=== PATIENT | female | born 1930 | race Caucasian/White ===

== ENCOUNTER → 2018-08-27 | Outpatient (CLI) | payer MEDICARE ==
[~2018-08-27] MED LIST: AMLODIPINE BESYLATE PO; ASPIRIN81 M2 PO; ATIVAN0.5 MG PO; ELIDEL; LYRICA 75MG75 MG; MAGNESIUM; METOPROLOL SUCC25 MG PO; METOPROLOL TART25 MG PO; OMEGA 3; TYLENOL80 MG/0.8 PO; VITAMIN B12; Z.0.ALEVE220 MG PO; Z.0.CALTRATE 600 W1 PO; Z.0.HYDROCHLOROTHIA2 PO; Z.0.LOVASTATIN40 MG PO; Z.0.LOVENOX30 MG/0.3 SQ; Z.0.NORCO 10-325 T1 PO; Z.0.PRILOSEC OTC20 M PO; Z.0.VOLTAREN75 MG PO; [UNRECOGNIZED DRUG - OTHER]; [UNRECOGNIZED DRUG - OTHER]
--- NOTE | 2018-08-27 09:17 | Diagnostic Imaging Report ---
PROCEDURE: Frontal and lateral views of the chest. COMPARISON: Chest radiograph 11/08/2011. INDICATIONS: BREAST CANCER FINDINGS: Lines/tubes: None. Lungs: The lungs are well inflated. No evidence of pneumonia or pulmonary edema. Pleura: There is no pleural effusion or pneumothorax. Heart and mediastinum: The cardiomediastinal silhouette is unremarkable. Atherosclerotic aortic calcifications. Eventration of the right hemidiaphragm. Bones: No acute bony abnormality. There is a partially seen deformity of the left humeral diaphysis, which appears more sclerotic and enlarged compared to prior radiograph on 11/08/2011. IMPRESSION: No acute intrathoracic abnormality. Partially seen increased sclerosis and deformity of the left humeral diaphysis compared to radiograph on 11/08/11 which demonstrated a lucent lesion at this location. This is indeterminate and could represent metastatic lesion and dedicated radiographs of the left humerus are suggested. Dictated by: PRANAV MONTELONGO M.D. on 08/27/2018 at 9:26 Electronically approved by: PRANAV MONTELONGO M.D. on 08/27/2018 at 9:26
--- NOTE | 2018-09-07 08:37 | Diagnostic Imaging Report ---
#[id number] - MGSCRRT #UNILATERAL RIGHT DIGITAL SCREENING MAMMOGRAM WITH CAD: 08/27/2018 CLINICAL: Routine screening. Comparison is made to exam dated: 08/26/2017 mammogram - [facility]. Current study contains 4 films. There are scattered fibroglandular elements in the right breast. Current study was also evaluated with a Computer Aided Detection (CAD) system. There are benign vascular calcifications and calcifications in the right breast. No significant masses, calcifications, or other findings are seen in the breast. There has been no significant interval change. IMPRESSION: BENIGN There is no mammographic evidence of malignancy. A 1 year screening mammogram is recommended. The patient will be notified by letter of the results. Naresh elkins/jose:09/04/2018 08:46:42 Log Roper: Dominique DOZIER)(Zane), [facility] letter sent: Compared to Prior B9 Mammogram BI-RADS: 2 Benign
== END ==
LOC: MAMMO 08:25
PROVIDERS: ATTEND Surgery
DX: Z12.31 Encounter for screening mammogram for malignant neoplasm of breast (principal); Z90.12 Acquired absence of left breast and nipple
CPT/HCPCS: 71046

== ENCOUNTER → 2019-09-09 | Outpatient (CLI) | payer MEDICARE ==
[2019-09-09 10:32] LABS: BASOPHILS % 0.4 % (0.0-1.0); EOSINOPHILS # (AUTO) 0.1 (0.0-0.4); EOSINOPHILS % 1.9 % (0.0-6.0); HEMATOCRIT 36.7 % (34.2-44.1); HEMOGLOBIN 11.8 g/dL (12.0-16.0); LYMPHOCYTES % 19.1 % (18.0-39.1); MEAN CORPUSCULAR HEMOGLOBIN 29.6 pg (28-32); MEAN CORPUSCULAR HGB CONC 32.2 g/dL (31-35); MONOCYTES # (AUTO) 0.3 (0.2-0.8); MONOCYTES % 5.1 % (4.4-11.3); NEUTROPHILS # (AUTO) 3.9 (2.1-6.9); NEUTROPHILS % 73.3 % (38.7-80.0); PLATELET COUNT 260 x10e3/uL (140-360); RED BLOOD COUNT 3.99 x10e6/uL (3.6-5.1); RED CELL DISTRIBUTION WIDTH 15.2 % (11.7-14.4)
[2019-09-09 10:50] LABS: ALBUMIN 3.8 g/dL (3.5-5.0); ANION GAP 11.5 mmol/L (8-16); CALCIUM 9.8 mg/dL (8.4-10.2); CREATININE, SERUM 1.23 mg/dL (0.57-1.11); POTASSIUM 3.5 mmol/L (3.5-5.1)
--- NOTE | 2019-09-09 11:11 | Diagnostic Imaging Report ---
EXAMINATION: CHEST 2 VIEWS INDICATION: Breast cancer COMPARISON: None FINDINGS: LINES/TUBES:Left chest dual-lead pacer. LUNGS:The lungs are well-inflated. No focal consolidation or pulmonary edema. PLEURA:No pleural effusion or pneumothorax. MEDIASTINUM:The cardiomediastinal silhouette appears normal in size and shape. Atherosclerotic calcifications of the thoracic aorta. BONES/SOFT TISSUES:No acute osseous injury. Status post left mastectomy. ABDOMEN:No free air under the diaphragm. Status post cholecystectomy. IMPRESSION: No focal pneumonia or pulmonary edema. Status post left mastectomy. No radiographically apparent pulmonary nodules. Signed by: Willie Mistry MD on 09/09/2019 11:08 AM
--- NOTE | 2019-09-20 09:27 | Diagnostic Imaging Report ---
#[id number] - MGSCRRT #UNILATERAL RIGHT DIGITAL SCREENING MAMMOGRAM WITH CAD: 09/09/2019 Comparison is made to exams dated: 08/27/2018 mammogram and 08/26/2017 mammogram - [facility]. There are scattered fibroglandular elements in the right breast. Current study was also evaluated with a Computer Aided Detection (CAD) system. There are benign vascular calcifications and calcifications in the right breast. No significant masses, calcifications, or other findings are seen in the breast. There has been no significant interval change. IMPRESSION: BENIGN There is no mammographic evidence of malignancy. A 1 year screening mammogram is recommended. The patient will be notified by letter of the results. COLE jordan/jose:09/17/2019 11:39:31 Moving Picture Operator: Dominique DOZIER)(Zane), [facility] letter sent: Compared to Prior B9 Mammogram BI-RADS: 2 Benign
== END ==
LOC: MAMMO 09:26
PROVIDERS: ATTEND Surgery
DX: Z12.31 Encounter for screening mammogram for malignant neoplasm of breast (principal); Z85.3 Personal history of malignant neoplasm of breast
CPT/HCPCS: 36415; 71046; 80053; 82378; 85025